=== PATIENT | male | born 1955 | race Asian ===

== ENCOUNTER 2025-07-20 11:17 | Inpatient (IN) ==
[2025-07-19 11:37] LABS: INR 1.0 (0.9-1.1); Prothrombin Time 14.3 sec (11.9-14.5)
[2025-07-19 11:40] LABS: Anion Gap 11.0 (8.0-16.0); Blood Urea Nitrogen 16 mg/dL (8-23); Calcium 9.0 mg/dL (8.6-10.4); Carbon Dioxide 27 mmol/L (22-30); Chloride 100 mmol/L (96-108); Glucose 115 mg/dL (70-105); Potassium 3.7 mmol/L (3.3-5.1); Sodium 138 mmol/L (133-145)
[2025-07-19 12:06] LABS: Basophils # (Auto) 0.07 K/mcL (0.00-0.30); Basophils % (Auto) 0.9 % (0.0-2.0); Eosinophils # (Auto) 0.04 K/mcL (0.00-0.70); Eosinophils % (Auto) 0.5 % (0.0-7.0); Hematocrit 36.7 % (40.1-51.0); Hemoglobin 11.0 g/dL (13.7-17.5); Lymphocytes # (Auto) 0.61 K/mcL (1.50-4.80); Lymphocytes % (Auto) 7.8 % (15.5-49.0); Mean Corpuscular HGB Conc 30.0 g/dL (31.0-36.0); Monocytes # (Auto) 0.61 K/mcL (0.10-0.90); Monocytes % (Auto) 7.8 % (1.0-12.0); Neutrophils % (Auto) 80.3 % (38.0-78.0); Platelet Count 482 K/mcL (140-440); RBC 4.26 M/mcL (4.63-6.08); WBC 7.8 K/mcL (4.5-11.0)
[2025-07-19 12:19] LABS: Estimated Average Glucose(eAG) 134 mg/dL; Hemoglobin A1C 6.3 % Hgb (4.0-6.0)
[2025-07-20] MEDS ORDERED: FAMOTIDINE/PF 20 MG/2 ML VIAL IV ONE (12:55)
[2025-07-20] MEDS ORDERED: MIDAZOLAM 2 MG/2 ML VIAL ONE (12:55)
[2025-07-20] MEDS ORDERED: PROPOFOL 200 MG/20 ML VIAL IV ONE (12:56)
[2025-07-20] MEDS ORDERED: LIDOCAINE 2% PF 5 ML VIAL ONE (13:01)
[2025-07-20] MEDS ORDERED: METOCLOPRAMIDE 10 MG/2 ML VIAL ONE (13:01)
[2025-07-20] MEDS ORDERED: GLYCOPYRROLATE 0.2 MG/ML VIAL IV ONE (13:01)
[2025-07-20] MEDS ORDERED: DEXAMETHASONE 10 MG/ML VIAL ONE (13:01)
[2025-07-20] MEDS ORDERED: ONDANSETRON 4 MG/2 ML VIAL ONE (13:01)
[2025-07-20] MEDS ORDERED: ROCURONIUM 10 MG/ML ML IV ONE ×2 (13:01→14:23)
[2025-07-20] MEDS ORDERED: BUPIVACAINE LIPOSOMAL 1.3% 10 ML VIAL IJ ONE ×2 (13:02)
[2025-07-20] MEDS ORDERED: BUPIVACAINE PF 0.5% 10 ML VIAL ONE (13:02)
[2025-07-20] MEDS: ceFAZolin 2 GM in DEXTROSE 5% IN WATER 50 ML IV SCH (13:29)
[2025-07-20] MEDS ORDERED: HYDROmorphone 0.5 MG/0.5 ML SYRINGE ONE (14:12)
[2025-07-20] MEDS ORDERED: METOPROLOL TARTRATE 5 MG/5 ML VIAL IV ONE (14:19)
[2025-07-20] MEDS ORDERED: SUGAMMADEX SODIUM 200 MG/2 ML VIAL IV ONE (14:51)
[2025-07-20] MEDS ORDERED: ALBUTEROL SULFATE 2.5 MG/3 ML NEBULIZER NEB PRN (15:21)
[2025-07-20] MEDS: hydrALAZINE 20 MG/ML VIAL IV ONE (15:43)
[2025-07-20] MEDS: PIPERACILLIN SODIUM/TAZOBACTAM 3.375 GM in DEXTROSE 5% IN WATER 50 ML IV ONE (17:34)
[2025-07-20] MEDS: 0.9 % SODIUM CHLORIDE 1,000 ML IV SCH (17:35)
[2025-07-20] MEDS: PIPERACILLIN SODIUM/TAZOBACTAM 3.375 GM in DEXTROSE 5% IN WATER 50 ML IV SCH (18:07)
[2025-07-20] MEDS: PIPERACILLIN SODIUM/TAZOBACTAM 3.375 GM in DEXTROSE 5% IN WATER 100 ML IV SCH (22:37)
[2025-07-20] MEDS: 0.9 % SODIUM CHLORIDE 10 ML SYRINGE IV SCH (22:38)
[2025-07-20] MEDS: FAMOTIDINE/PF 20 MG/2 ML VIAL IV SCH (22:38)
[2025-07-20] MEDS: SENNOSIDES 1 TABLET PO SCH (22:38)
[2025-07-20] MEDS: DOCUSATE SODIUM 100 MG CAPSULE PO SCH (22:38)
[2025-07-21 06:57] LABS: Basophils # (Auto) 0.01 K/mcL (0.00-0.30); Basophils % (Auto) 0.1 % (0.0-2.0); Eosinophils # (Auto) 0 K/mcL (0.00-0.70); Eosinophils % (Auto) 0 % (0.0-7.0); Hematocrit 33.2 % (40.1-51.0); Hemoglobin 10.1 g/dL (13.7-17.5); Lymphocytes # (Auto) 0.60 K/mcL (1.50-4.80); Lymphocytes % (Auto) 4.0 % (15.5-49.0); Mean Corpuscular HGB Conc 30.4 g/dL (31.0-36.0); Monocytes # (Auto) 1.09 K/mcL (0.10-0.90); Monocytes % (Auto) 7.2 % (1.0-12.0); Neutrophils % (Auto) 88.3 % (38.0-78.0); Platelet Count 425 K/mcL (140-440); RBC 3.78 M/mcL (4.63-6.08); WBC 15.0 K/mcL (4.5-11.0)
[2025-07-21 07:09] LABS: ALT/SGPT 7 U/L (<40); AST/SGOT 10 U/L (<40); Albumin 2.4 gm/dL (3.2-5.2); Albumin/Globulin Ratio 1.2 (1.0-2.3); Alkaline Phosphatase 82 U/L (39-117); Anion Gap 11.0 (8.0-16.0); Bilirubin,Total 0.3 mg/dL (0.1-1.0); Blood Urea Nitrogen 16 mg/dL (8-23); Calcium 7.8 mg/dL (8.6-10.4); Carbon Dioxide 21 mmol/L (22-30); Chloride 104 mmol/L (96-108); Globulin 2.0 gm/dL (2.2-3.7); Glucose 149 mg/dL (70-105); Potassium 3.7 mmol/L (3.3-5.1); Sodium 136 mmol/L (133-145)
[2025-07-21] MEDS: ENOXAPARIN 40 MG/0.4 ML SYRINGE SQ SCH (10:03)
[2025-07-22 06:31] LABS: Basophils # (Auto) 0.04 K/mcL (0.00-0.30); Basophils % (Auto) 0.4 % (0.0-2.0); Eosinophils # (Auto) 0.02 K/mcL (0.00-0.70); Eosinophils % (Auto) 0.2 % (0.0-7.0); Hematocrit 32.9 % (40.1-51.0); Hemoglobin 9.4 g/dL (13.7-17.5); Lymphocytes # (Auto) 0.52 K/mcL (1.50-4.80); Lymphocytes % (Auto) 5.1 % (15.5-49.0); Mean Corpuscular HGB Conc 28.6 g/dL (31.0-36.0); Monocytes # (Auto) 0.67 K/mcL (0.10-0.90); Monocytes % (Auto) 6.6 % (1.0-12.0); Neutrophils % (Auto) 87.3 % (38.0-78.0); Platelet Count 358 K/mcL (140-440); RBC 3.60 M/mcL (4.63-6.08); WBC 10.1 K/mcL (4.5-11.0)
[2025-07-22 07:36] LABS: ALT/SGPT 9 U/L (<40); AST/SGOT 16 U/L (<40); Albumin 2.6 gm/dL (3.2-5.2); Albumin/Globulin Ratio 1.1 (1.0-2.3); Alkaline Phosphatase 86 U/L (39-117); Anion Gap 10.0 (8.0-16.0); Bilirubin,Total 0.4 mg/dL (0.1-1.0); Blood Urea Nitrogen 12 mg/dL (8-23); Calcium 8.0 mg/dL (8.6-10.4); Carbon Dioxide 23 mmol/L (22-30); Chloride 103 mmol/L (96-108); Globulin 2.3 gm/dL (2.2-3.7); Glucose 109 mg/dL (70-105); Potassium 2.7 mmol/L (3.3-5.1); Sodium 136 mmol/L (133-145)
[2025-07-22] MEDS: 0.9 % SODIUM CHLORIDE 1,000 ML IV SCH (08:55)
[2025-07-22] MEDS: POTASSIUM CHLORIDE 10 MEQ/100 ML BAG IV SCH (09:11)
[2025-07-22] MEDS: METOCLOPRAMIDE 10 MG/2 ML VIAL IV SCH (12:17)
[2025-07-23 06:44] LABS: Basophils # (Auto) 0.02 K/mcL (0.00-0.30); Basophils % (Auto) 0.2 % (0.0-2.0); Eosinophils # (Auto) 0.03 K/mcL (0.00-0.70); Eosinophils % (Auto) 0.4 % (0.0-7.0); Hematocrit 27.2 % (40.1-51.0); Hemoglobin 8.1 g/dL (13.7-17.5); Lymphocytes # (Auto) 0.62 K/mcL (1.50-4.80); Lymphocytes % (Auto) 7.3 % (15.5-49.0); Mean Corpuscular HGB Conc 29.8 g/dL (31.0-36.0); Monocytes # (Auto) 0.66 K/mcL (0.10-0.90); Monocytes % (Auto) 7.8 % (1.0-12.0); Neutrophils % (Auto) 84.1 % (38.0-78.0); Platelet Count 333 K/mcL (140-440); RBC 3.06 M/mcL (4.63-6.08); WBC 8.5 K/mcL (4.5-11.0)
[2025-07-23 07:58] LABS: ALT/SGPT 8 U/L (<40); AST/SGOT 16 U/L (<40); Albumin 2.2 gm/dL (3.2-5.2); Albumin/Globulin Ratio 1.0 (1.0-2.3); Alkaline Phosphatase 74 U/L (39-117); Anion Gap 13.0 (8.0-16.0); Bilirubin,Total 0.4 mg/dL (0.1-1.0); Blood Urea Nitrogen 3 mg/dL (8-23); Calcium 7.7 mg/dL (8.6-10.4); Carbon Dioxide 22 mmol/L (22-30); Chloride 99 mmol/L (96-108); Globulin 2.1 gm/dL (2.2-3.7); Glucose 76 mg/dL (70-105); Potassium 2.6 mmol/L (3.3-5.1); Sodium 134 mmol/L (133-145)
[2025-07-23] MEDS ORDERED: DEXTROSE 5%-1/2NS W/40MEQ KCL 1,000 ML IV SCH (08:30)
[2025-07-23] MEDS ORDERED: POTASSIUM CHLORIDE 40 MEQ in DEXTROSE 5%-1/2NS 1,000 ML IV SCH (08:30)
[2025-07-23] MEDS: POTASSIUM CHLORIDE 10 MEQ/100 ML BAG IV SCH (09:42)
[2025-07-23] MEDS: POTASSIUM CHLORIDE 20 MEQ TABLET PO ONE (09:42)
[2025-07-23] MEDS: ONDANSETRON 4 MG/2 ML VIAL IV PRN (13:38)
[2025-07-23] MEDS: POTASSIUM CHLORIDE 40 MEQ in DEXTROSE 5%-1/2NS 1,000 ML IV SCH (18:28)
[2025-07-24] MEDS: POTASSIUM CHLORIDE 40 MEQ in DEXTROSE 5% IN WATER 500 ML IV ONE (00:45)
[2025-07-24 06:28] LABS: Basophils # (Auto) 0.01 K/mcL (0.00-0.30); Basophils % (Auto) 0.2 % (0.0-2.0); Eosinophils # (Auto) 0.05 K/mcL (0.00-0.70); Eosinophils % (Auto) 0.8 % (0.0-7.0); Hematocrit 30.3 % (40.1-51.0); Hemoglobin 9.3 g/dL (13.7-17.5); Lymphocytes # (Auto) 0.72 K/mcL (1.50-4.80); Lymphocytes % (Auto) 11.3 % (15.5-49.0); Mean Corpuscular HGB Conc 30.7 g/dL (31.0-36.0); Monocytes # (Auto) 1.21 K/mcL (0.10-0.90); Monocytes % (Auto) 19.0 % (1.0-12.0); Neutrophils % (Auto) 68.4 % (38.0-78.0); Platelet Count 345 K/mcL (140-440); RBC 3.51 M/mcL (4.63-6.08); WBC 6.4 K/mcL (4.5-11.0)
[2025-07-24 06:37] LABS: ALT/SGPT 6 U/L (<40); AST/SGOT 10 U/L (<40); Albumin 2.3 gm/dL (3.2-5.2); Albumin/Globulin Ratio 1.0 (1.0-2.3); Alkaline Phosphatase 78 U/L (39-117); Anion Gap 9.0 (8.0-16.0); Bilirubin,Total 0.3 mg/dL (0.1-1.0); Blood Urea Nitrogen 2 mg/dL (8-23); Calcium 7.9 mg/dL (8.6-10.4); Carbon Dioxide 24 mmol/L (22-30); Chloride 102 mmol/L (96-108); Globulin 2.2 gm/dL (2.2-3.7); Glucose 156 mg/dL (70-105); Potassium 3.3 mmol/L (3.3-5.1); Sodium 135 mmol/L (133-145)
[2025-07-24] MEDS: POTASSIUM CHLORIDE 20 MEQ TABLET PO ONE (08:12)
[2025-07-24] MEDS ORDERED: DICYCLOMINE 20 MG TABLET PO PRN (17:04)
[2025-07-25 07:27] LABS: ALT/SGPT 7 U/L (<40); AST/SGOT 12 U/L (<40); Albumin 2.2 gm/dL (3.2-5.2); Albumin/Globulin Ratio 1.0 (1.0-2.3); Alkaline Phosphatase 74 U/L (39-117); Anion Gap 11.0 (8.0-16.0); Bilirubin,Total 0.4 mg/dL (0.1-1.0); Blood Urea Nitrogen < 2 mg/dL (8-23); Calcium 8.0 mg/dL (8.6-10.4); Carbon Dioxide 22 mmol/L (22-30); Chloride 102 mmol/L (96-108); Globulin 2.2 gm/dL (2.2-3.7); Glucose 136 mg/dL (70-105); Potassium 3.7 mmol/L (3.3-5.1); Sodium 135 mmol/L (133-145)
[2025-07-25 09:05] LABS: Basophils # (Auto) 0.02 K/mcL (0.00-0.30); Basophils % (Auto) 0.5 % (0.0-2.0); Eosinophils # (Auto) 0.09 K/mcL (0.00-0.70); Eosinophils % (Auto) 2.1 % (0.0-7.0); Hematocrit 28.7 % (40.1-51.0); Hemoglobin 8.6 g/dL (13.7-17.5); Lymphocytes # (Auto) 0.76 K/mcL (1.50-4.80); Lymphocytes % (Auto) 17.5 % (15.5-49.0); Mean Corpuscular HGB Conc 30.0 g/dL (31.0-36.0); Monocytes # (Auto) 1.35 K/mcL (0.10-0.90); Monocytes % (Auto) 31.0 % (1.0-12.0); Neutrophils % (Auto) 48.4 % (38.0-78.0); Platelet Count 330 K/mcL (140-440); RBC 3.26 M/mcL (4.63-6.08); WBC 4.4 K/mcL (4.5-11.0)
[2025-07-26 06:48] LABS: Basophils # (Auto) 0.02 K/mcL (0.00-0.30); Basophils % (Auto) 0.8 % (0.0-2.0); Eosinophils # (Auto) 0.07 K/mcL (0.00-0.70); Eosinophils % (Auto) 2.7 % (0.0-7.0); Hematocrit 26.7 % (40.1-51.0); Hemoglobin 8.3 g/dL (13.7-17.5); Lymphocytes # (Auto) 0.58 K/mcL (1.50-4.80); Lymphocytes % (Auto) 22.2 % (15.5-49.0); Mean Corpuscular HGB Conc 31.1 g/dL (31.0-36.0); Monocytes # (Auto) 0.78 K/mcL (0.10-0.90); Monocytes % (Auto) 29.9 % (1.0-12.0); Neutrophils % (Auto) 43.3 % (38.0-78.0); Platelet Count 359 K/mcL (140-440); WBC 2.6 K/mcL (4.5-11.0)
[2025-07-26 06:50] LABS: ALT/SGPT 6 U/L (<40); AST/SGOT 11 U/L (<40); Albumin 2.2 gm/dL (3.2-5.2); Albumin/Globulin Ratio 1.1 (1.0-2.3); Alkaline Phosphatase 74 U/L (39-117); Anion Gap 8.0 (8.0-16.0); Bilirubin,Total 0.3 mg/dL (0.1-1.0); Blood Urea Nitrogen < 2 mg/dL (8-23); Calcium 7.7 mg/dL (8.6-10.4); Carbon Dioxide 25 mmol/L (22-30); Chloride 102 mmol/L (96-108); Globulin 2.0 gm/dL (2.2-3.7); Glucose 132 mg/dL (70-105); Potassium 3.5 mmol/L (3.3-5.1); Sodium 135 mmol/L (133-145)
[2025-07-26 08:26] LABS: RBC 3.18 M/mcL (4.63-6.08)
[2025-07-26 12:19] VITALS: TEMP 97.4; O2SAT 92
== END 2025-07-26 12:31 | DRG 329 ==
LOC: SUR 11:17 → MEDSUR 15:58
PROVIDERS: ADMIT Surgery; ATTEND Surgery
PROC: DIAGSCO (2025-07-20 13:30)